=== PATIENT | male | born 1965 | race Caucasian/White ===

== ENCOUNTER 2017-01-30 22:07 | Inpatient (IN) | payer MEDICARE, MEDICAID ==
[~2017-01-30] VITALS: Ht 167.6 cm; Wt 69.1 kg
[~2017-01-30 22:07] MED LIST: AMLO2.5T PO; ATOR10TA84 PO; FURO10VI4 IM; LISI-661 PO; METF500T4 PO; OLAN2.5T3 PO; TAMS0.4C32 PO; WARF1 PO
[2017-01-30 23:59] LABS: BASOPHILS # (AUTO) 0.04 K/uL (0.00-0.20); BASOPHILS % (AUTO) 0.6 % (0.0-2.0); EOSINOPHILS # (AUTO) 0.18 K/uL (0.00-0.70); EOSINOPHILS % (AUTO) 2.39 % (1.0-6.0); HEMATOCRIT 25.5 % (41-53); HEMOGLOBIN 8.1 g/dL (13.5-17.5); LYMPHOCYTES # (AUTO) 0.6 K/uL (1.0-4.8); LYMPHOCYTES % (AUTO) 7.6 % (22.0-44.0); MEAN CORPUSCULAR HEMOGLOBIN 27.3 pg (26.0-34.0); MEAN CORPUSCULAR HGB CONC 31.6 G/dL (31.0-37.0); MEAN CORPUSCULAR VOLUME 87 fL (80-100); MONOCYTES # (AUTO) 0.6 K/uL (0.1-1.0); MONOCYTES % (AUTO) 8.3 % (2.0-9.0); NEUTROPHILS # (AUTO) 6.1 K/uL (1.8-7.7); NEUTROPHILS % (AUTO) 81.2 % (40.0-70.0); PLATELET COUNT (AUTO) 190 K/uL (150-450); RED BLOOD CELL COUNT(AUTO) 2.95 MIL/uL (4.50-5.90); RED CELL DISTRIBUTION WIDTH 15.4 % (11.5-14.5); WHITE BLOOD COUNT (AUTO) 7.5 K/uL (4.5-11.0)
[2017-01-31 00:06] LABS: ANION GAP 7 mmol/L (8-16); CALCIUM, TOTAL 8.5 mg/dL (8.8-10.5); CARBON DIOXIDE 33 mmol/L (22-29); CHLORIDE 101 mmol/L (98-107); CREATININE 2.93 mg/dL (0.60-1.30); GLOMERULAR FILTR. RATE CALC 23 mL/min (>60); POTASSIUM 3.6 mmol/L (3.5-5.1); SODIUM SERUM 141 mmol/L (136-145); UREA NITROGEN, BLOOD 29 mg/dL (7-18)
[2017-01-31 00:11] LABS: ALANINE AMINOTRANSFERASE 24 U/L (12-78); ALBUMIN 2.4 g/dL (3.4-5.0); ASPARTATE AMINOTRANSFERASE 25 U/L (15-37); BILIRUBIN,TOTAL 0.4 mg/dL (0.1-1.0); TOTAL PROTEIN, SERUM 7.3 g/dL (6.4-8.2)
[2017-01-31] MEDS ORDERED: HALOPERIDOL 5 MG TABLET PO PRN (01:45)
[2017-01-31] MEDS ORDERED: ZOLPIDEM TARTRATE 10 MG TABLET PO PRN (01:45)
[2017-01-31] MEDS ORDERED: LORazepam 2 MG TABLET PO PRN (01:45)
[2017-01-31 05:44] LABS: GLUCOSE,POINT OF CARE 122 MG/DL (70-110)
[2017-01-31 08:00] VITALS: BP 135/69
[2017-01-31] MEDS ORDERED: ACETAMINOPHEN 325 MG TABLET PO PRN (08:30)
[2017-01-31] MEDS ORDERED: BACITRACIN 28.4 GM OINTMENT TP PRN (08:30)
[2017-01-31] MEDS ORDERED: ONDANSETRON HCL 4 MG TABLET PO PRN (08:30)
[2017-01-31] MEDS ORDERED: MAG HYDROX/AL HYDROX/SIMETH ES 30 ML SUSPENSION UDCUP PO PRN (08:30)
[2017-01-31] MEDS ORDERED: CloNIDine HCL 0.1 MG TABLET PO PRN (08:30)
[2017-01-31] MEDS ORDERED: MAGNESIUM HYDROXIDE SUSPENSION 30 ML UDCUP PO PRN (08:30)
[2017-01-31] MEDS ORDERED: IBUPROFEN 600 MG TABLET PO PRN (08:30)
[2017-01-31] MEDS ORDERED: PETROLATUM,WHITE 71 GM JELLY TP PRN (08:30)
[2017-01-31] MEDS ORDERED: ALBUTEROL SULFATE HFA 90 MCG/PUFF 8 GM INHALER IH PRN (08:30)
[2017-01-31] MEDS ORDERED: LOPERAMIDE HCL 2 MG CAPSULE PO PRN (08:30)
[2017-01-31] MEDS ORDERED: BENZOCAINE/MENTHOL LOZENGE [8 LOZENGES/PACKET] MM PRN (08:30)
[2017-01-31] MEDS ORDERED: OLANZapine 5 MG TABLET PO SCH (09:00)
[2017-01-31] MEDS: TAMSULOSIN HCL 0.4 MG CAPSULE PO SCH (09:25)
[2017-01-31] MEDS: ATORVASTATIN CALCIUM 20 MG TABLET PO SCH (09:25)
[2017-01-31] MEDS: DOCUSATE SODIUM 100 MG CAPSULE PO SCH (09:25)
[2017-01-31] MEDS: AmLODIPine BESYLATE 2.5 MG TABLET PO SCH (09:26)
[2017-01-31] MEDS: OMEPRAZOLE 20 MG CAPSULE PO SCH (09:27)
[2017-01-31] MEDS: LISINOPRIL 10 MG TABLET PO SCH (09:27)
[2017-01-31] MEDS: VITAMIN B COMP/VIT C/FOLIC ACID CAPSULE PO SCH (09:27)
[2017-01-31] MEDS ORDERED: *CLINICAL-WARFARIN SODIUM DOSING CLINICAL ONE ×2 (11:00)
[2017-01-31] MEDS ORDERED: WARFARIN SODIUM-INR 2.0-3.0-RX DOSING PER PROTOCOL PO PRN (12:15)
[2017-01-31 12:31] LABS: INR 1.9 (0.9-1.1); PROTHROMBIN TIME 20.6 SEC (9.4-11.6)
[2017-01-31 12:47] VITALS: BP 125/78
[2017-01-31] MEDS: CALCIUM ACETATE 667 MG CAPSULE PO SCH ×2 (12:48→17:34)
[2017-01-31] MEDS: CARVEDILOL 6.25 MG TABLET PO SCH ×2 (12:49→17:33)
[2017-01-31] MEDS: MUPIROCIN CALCIUM 2% 22 GM OINTMENT TP SCH ×2 (12:52→17:34)
[2017-01-31 16:02] VITALS: BP 126/70
[2017-01-31] MEDS: WARFARIN SODIUM 2 MG TABLET PO SCH (17:34)
[2017-02-01 00:25] VITALS: BP 128/79
[2017-02-01] MEDS: CALCIUM ACETATE 667 MG CAPSULE PO SCH ×3 (07:00→17:38)
[2017-02-01] MEDS ORDERED: VANCOMYCIN HCL 750 MG in DEXTROSE 5%-WATER 150 ML IV SCH (08:00)
[2017-02-01 08:05] VITALS: BP 124/71
[2017-02-01] MEDS ORDERED: DEXTROSE 50%-WATER 25 GM/50 ML SYRINGE IVP PRN (08:15)
[2017-02-01] MEDS ORDERED: EPOETIN ALFA 10,000 UNITS/ML VIAL SQ SCH (09:00)
[2017-02-01 10:25] LABS: PROTHROMBIN TIME 20.7 SEC (9.4-11.6)
[2017-02-01 10:57] LABS: CHOL/HDL RATIO 3.1 (4.2-7.3); THYROID STIMULATING HORMONE 3.94 uIU/mL (0.36-3.74)
[2017-02-01] MEDS ORDERED: EPOETIN ALFA 10,000 UNITS/ML 2 ML VIAL SQ SCH (11:10)
[2017-02-01] MEDS ORDERED: EPOETIN ALFA 10,000 UNITS/ML VIAL SQ ONE (11:15)
[2017-02-01] MEDS: ATORVASTATIN CALCIUM 20 MG TABLET PO SCH (14:24)
[2017-02-01] MEDS: LISINOPRIL 10 MG TABLET PO SCH (14:24)
[2017-02-01] MEDS: DOCUSATE SODIUM 100 MG CAPSULE PO SCH (14:24)
[2017-02-01] MEDS: TAMSULOSIN HCL 0.4 MG CAPSULE PO SCH (14:24)
[2017-02-01] MEDS: VITAMIN B COMP/VIT C/FOLIC ACID CAPSULE PO SCH (14:24)
[2017-02-01] MEDS: CITALOPRAM HYDROBROMIDE 20 MG TABLET PO SCH (14:24)
[2017-02-01] MEDS: OMEPRAZOLE 20 MG CAPSULE PO SCH (14:24)
[2017-02-01] MEDS: CARVEDILOL 6.25 MG TABLET PO SCH ×2 (14:24→17:38)
[2017-02-01] MEDS: MUPIROCIN CALCIUM 2% 15 GM CREAM TP SCH ×3 (14:25→17:38)
[2017-02-01] MEDS: AmLODIPine BESYLATE 2.5 MG TABLET PO SCH (14:25)
[2017-02-01] MEDS: MUPIROCIN CALCIUM 2% 22 GM OINTMENT TP SCH ×3 (14:25→17:38)
[2017-02-01] MEDS: LevETIRAcetam 250 MG TABLET PO SCH ×2 (17:00→17:39)
[2017-02-01 17:37] LABS: GLUCOSE,POINT OF CARE 122 MG/DL (70-110)
[2017-02-01] MEDS: WARFARIN SODIUM 2 MG TABLET PO SCH (17:38)
[2017-02-01 17:43] VITALS: BP 122/68
[2017-02-01] MEDS ORDERED: LevETIRAcetam 250 MG TABLET PO ONE (18:30)
[2017-02-01 21:52] LABS: GLUCOSE COMMENT 1 Received Meds; GLUCOSE,POINT OF CARE 116 MG/DL (70-110)
[2017-02-02] MEDS: CALCIUM ACETATE 667 MG CAPSULE PO SCH ×3 (06:49→19:20)
[2017-02-02 06:57] LABS: GLUCOSE,POINT OF CARE 83 MG/DL (70-110)
[2017-02-02 07:45] LABS: INR 2.1 (0.9-1.1); PROTHROMBIN TIME 21.8 SEC (9.4-11.6)
[2017-02-02] MEDS: MUPIROCIN CALCIUM 2% 22 GM OINTMENT TP SCH ×3 (09:00→16:49)
[2017-02-02] MEDS: LevETIRAcetam 250 MG TABLET PO SCH ×2 (09:28→16:48)
[2017-02-02] MEDS: CARVEDILOL 6.25 MG TABLET PO SCH ×2 (09:28→19:20)
[2017-02-02] MEDS: CITALOPRAM HYDROBROMIDE 20 MG TABLET PO SCH (09:28)
[2017-02-02] MEDS: DOCUSATE SODIUM 100 MG CAPSULE PO SCH (09:28)
[2017-02-02] MEDS: TAMSULOSIN HCL 0.4 MG CAPSULE PO SCH (09:28)
[2017-02-02] MEDS: AmLODIPine BESYLATE 2.5 MG TABLET PO SCH (09:29)
[2017-02-02] MEDS: OMEPRAZOLE 20 MG CAPSULE PO SCH (09:29)
[2017-02-02] MEDS: ATORVASTATIN CALCIUM 20 MG TABLET PO SCH (09:29)
[2017-02-02] MEDS: LISINOPRIL 10 MG TABLET PO SCH (09:29)
[2017-02-02] MEDS: VITAMIN B COMP/VIT C/FOLIC ACID CAPSULE PO SCH (09:29)
[2017-02-02 09:39] VITALS: BP 125/64
[2017-02-02] MEDS: MUPIROCIN CALCIUM 2% 15 GM CREAM TP SCH ×2 (10:57→16:49)
[2017-02-02 11:47] LABS: GLUCOSE,POINT OF CARE 91 MG/DL (70-110)
[2017-02-02 16:41] VITALS: BP 126/70
[2017-02-02 16:46] LABS: GLUCOSE,POINT OF CARE 93 MG/DL (70-110)
[2017-02-02] MEDS: WARFARIN SODIUM 2 MG TABLET PO SCH (16:48)
[2017-02-02 20:32] LABS: GLUCOSE,POINT OF CARE 96 MG/DL (70-110)
[2017-02-03 05:42] LABS: GLUCOSE,POINT OF CARE 91 MG/DL (70-110)
[2017-02-03] MEDS: INSULIN ASPART 100 UNITS/ML SQ PRN (06:50)
[2017-02-03] MEDS: CALCIUM ACETATE 667 MG CAPSULE PO SCH ×3 (06:59→17:25)
[2017-02-03 07:49] LABS: INR 1.9 (0.9-1.1); PROTHROMBIN TIME 20.1 SEC (9.4-11.6)
[2017-02-03] MEDS ORDERED: -POST HEMODIALYSIS NOTE- MISC SCH (09:00)
[2017-02-03] MEDS: MUPIROCIN CALCIUM 2% 22 GM OINTMENT TP SCH ×2 (09:00→16:40)
[2017-02-03] MEDS: MUPIROCIN CALCIUM 2% 15 GM CREAM TP SCH ×2 (09:00→16:40)
[2017-02-03] MEDS: CITALOPRAM HYDROBROMIDE 20 MG TABLET PO SCH (09:34)
[2017-02-03] MEDS: DOCUSATE SODIUM 100 MG CAPSULE PO SCH (09:34)
[2017-02-03] MEDS: CARVEDILOL 6.25 MG TABLET PO SCH ×2 (09:34→16:40)
[2017-02-03] MEDS: ATORVASTATIN CALCIUM 20 MG TABLET PO SCH (09:35)
[2017-02-03] MEDS: AmLODIPine BESYLATE 2.5 MG TABLET PO SCH (09:35)
[2017-02-03] MEDS: LevETIRAcetam 250 MG TABLET PO SCH ×2 (09:35→16:40)
[2017-02-03] MEDS: OMEPRAZOLE 20 MG CAPSULE PO SCH (09:35)
[2017-02-03] MEDS: VITAMIN B COMP/VIT C/FOLIC ACID CAPSULE PO SCH (09:35)
[2017-02-03] MEDS: TAMSULOSIN HCL 0.4 MG CAPSULE PO SCH (09:35)
[2017-02-03] MEDS: LISINOPRIL 10 MG TABLET PO SCH (09:36)
[2017-02-03 10:40] VITALS: BP 124/75
[2017-02-03 11:27] LABS: GLUCOSE,POINT OF CARE 85 MG/DL (70-110)
[2017-02-03 16:17] VITALS: BP 125/74
[2017-02-03] MEDS: WARFARIN SODIUM 2 MG TABLET PO SCH (16:40)
[2017-02-03 16:42] LABS: GLUCOSE COMMENT 1 Received Meds; GLUCOSE,POINT OF CARE 78 MG/DL (70-110)
[2017-02-04 05:32] LABS: GLUCOSE,POINT OF CARE 74 MG/DL (70-110)
[2017-02-04] MEDS: CALCIUM ACETATE 667 MG CAPSULE PO SCH ×3 (06:39→16:58)
[2017-02-04 07:01] VITALS: BP 120/71
[2017-02-04 07:01] LABS: PROTHROMBIN TIME 20.7 SEC (9.4-11.6)
[2017-02-04] MEDS: MUPIROCIN CALCIUM 2% 15 GM CREAM TP SCH ×2 (09:00→16:59)
[2017-02-04] MEDS: LevETIRAcetam 250 MG TABLET PO SCH ×2 (09:00→16:58)
[2017-02-04] MEDS: CARVEDILOL 6.25 MG TABLET PO SCH ×2 (09:00→16:58)
[2017-02-04] MEDS: MUPIROCIN CALCIUM 2% 22 GM OINTMENT TP SCH ×2 (09:00→16:59)
[2017-02-04 11:29] VITALS: BP 131/67
[2017-02-04] MEDS ORDERED: MANNITOL 25%-12.5 GM/50 ML VIAL IVP PRN (12:00)
[2017-02-04] MEDS ORDERED: ALBUMIN HUMAN 25%-12.5GM/50ML IV BOTTLE IV PRN (12:00)
[2017-02-04] MEDS: DOCUSATE SODIUM 100 MG CAPSULE PO SCH (13:25)
[2017-02-04] MEDS: TAMSULOSIN HCL 0.4 MG CAPSULE PO SCH (13:25)
[2017-02-04] MEDS: CITALOPRAM HYDROBROMIDE 20 MG TABLET PO SCH (13:25)
[2017-02-04] MEDS: VITAMIN B COMP/VIT C/FOLIC ACID CAPSULE PO SCH (13:26)
[2017-02-04] MEDS: LISINOPRIL 10 MG TABLET PO SCH (13:26)
[2017-02-04] MEDS: ATORVASTATIN CALCIUM 20 MG TABLET PO SCH (13:26)
[2017-02-04] MEDS: AmLODIPine BESYLATE 2.5 MG TABLET PO SCH (13:34)
[2017-02-04] MEDS: OMEPRAZOLE 20 MG CAPSULE PO SCH (13:34)
[2017-02-04] MEDS: EPOETIN ALFA 10,000 UNITS/ML 2 ML VIAL SQ SCH (13:42)
[2017-02-04 13:45] VITALS: BP 131/76
[2017-02-04] MEDS: WARFARIN SODIUM 2 MG TABLET PO SCH (16:58)
[2017-02-04 17:32] LABS: GLUCOSE COMMENT 1 FASTING; GLUCOSE,POINT OF CARE 75 MG/DL (70-110)
[2017-02-04 20:28] VITALS: BP 120/72
[2017-02-05 06:36] LABS: GLUCOSE,POINT OF CARE 77 MG/DL (70-110)
[2017-02-05] MEDS: CALCIUM ACETATE 667 MG CAPSULE PO SCH ×3 (07:03→17:41)
[2017-02-05] MEDS: INSULIN ASPART 100 UNITS/ML SQ PRN ×2 (07:05→07:06)
[2017-02-05 07:34] LABS: CALCIUM, TOTAL 8.6 mg/dL (8.8-10.5); CREATININE 4.97 mg/dL (0.60-1.30); PHOSPHORUS 5.2 mg/dL (2.5-4.9); POTASSIUM 4.8 mmol/L (3.5-5.1)
[2017-02-05] MEDS: LevETIRAcetam 250 MG TABLET PO SCH ×2 (10:32→17:41)
[2017-02-05] MEDS: CITALOPRAM HYDROBROMIDE 20 MG TABLET PO SCH (10:32)
[2017-02-05] MEDS: DOCUSATE SODIUM 100 MG CAPSULE PO SCH (10:32)
[2017-02-05] MEDS: ATORVASTATIN CALCIUM 20 MG TABLET PO SCH (10:32)
[2017-02-05] MEDS: CARVEDILOL 6.25 MG TABLET PO SCH ×2 (10:32→17:41)
[2017-02-05] MEDS: OMEPRAZOLE 20 MG CAPSULE PO SCH (10:32)
[2017-02-05] MEDS: AmLODIPine BESYLATE 2.5 MG TABLET PO SCH (10:32)
[2017-02-05] MEDS: LISINOPRIL 10 MG TABLET PO SCH (10:33)
[2017-02-05] MEDS: VITAMIN B COMP/VIT C/FOLIC ACID CAPSULE PO SCH (10:33)
[2017-02-05] MEDS: TAMSULOSIN HCL 0.4 MG CAPSULE PO SCH (10:33)
[2017-02-05] MEDS: MUPIROCIN CALCIUM 2% 15 GM CREAM TP SCH ×2 (10:37→17:00)
[2017-02-05] MEDS: MUPIROCIN CALCIUM 2% 22 GM OINTMENT TP SCH ×2 (10:37→17:00)
[2017-02-05 13:20] VITALS: BP 122/68
[2017-02-05 16:00] VITALS: BP 126/57
[2017-02-05] MEDS: WARFARIN SODIUM 2 MG TABLET PO SCH (17:41)
[2017-02-05 17:52] LABS: GLUCOSE COMMENT 1 FASTING; GLUCOSE,POINT OF CARE 87 MG/DL (70-110)
[2017-02-06 05:37] LABS: GLUCOSE,POINT OF CARE 72 MG/DL (70-110)
[2017-02-06] MEDS: CALCIUM ACETATE 667 MG CAPSULE PO SCH (06:33)
[2017-02-06 06:43] VITALS: BP 116/73
[2017-02-06 06:55] LABS: BASOPHILS # (AUTO) 0.03 K/uL (0.00-0.20); BASOPHILS % (AUTO) 0.6 % (0.0-2.0); EOSINOPHILS # (AUTO) 0.11 K/uL (0.00-0.70); EOSINOPHILS % (AUTO) 2.05 % (1.0-6.0); HEMATOCRIT 24.7 % (41-53); HEMOGLOBIN 7.8 g/dL (13.5-17.5); LYMPHOCYTES # (AUTO) 0.8 K/uL (1.0-4.8); LYMPHOCYTES % (AUTO) 15.2 % (22.0-44.0); MEAN CORPUSCULAR HEMOGLOBIN 27.4 pg (26.0-34.0); MEAN CORPUSCULAR HGB CONC 31.7 G/dL (31.0-37.0); MEAN CORPUSCULAR VOLUME 87 fL (80-100); MONOCYTES # (AUTO) 0.4 K/uL (0.1-1.0); MONOCYTES % (AUTO) 7.1 % (2.0-9.0); RED BLOOD CELL COUNT(AUTO) 2.86 MIL/uL (4.50-5.90); WHITE BLOOD COUNT (AUTO) 5.4 K/uL (4.5-11.0)
[2017-02-06 07:00] LABS: INR 2.2 (0.9-1.1)
[2017-02-06 07:31] LABS: CALCIUM, TOTAL 9.1 mg/dL (8.8-10.5); CREATININE 6.4 mg/dL (0.60-1.30); PHOSPHORUS 6.2 mg/dL (2.5-4.9); POTASSIUM 5.9 mmol/L (3.5-5.1)
[2017-02-06 08:03] LABS: PLATELET COUNT (AUTO) 90 K/uL (150-450)
[2017-02-06] MEDS: MUPIROCIN CALCIUM 2% 15 GM CREAM TP SCH (08:37)
[2017-02-06] MEDS: MUPIROCIN CALCIUM 2% 22 GM OINTMENT TP SCH (08:46)
[2017-02-06 09:58] VITALS: BP 121/79
[2017-02-06] MEDS ORDERED: ALBUMIN HUMAN 25%-12.5GM/50ML IV BOTTLE IV PRN (10:30)
[2017-02-06] MEDS ORDERED: MANNITOL 25%-12.5 GM/50 ML VIAL IVP PRN (10:30)
[2017-02-06] MEDS ORDERED: IRON SUCROSE COMPLEX 200 MG in SODIUM CHLORIDE 0.9% 100 ML IV PRN (10:30)
[2017-02-06] MEDS ORDERED: CITA20TA9 PO (13:43)
[2017-02-06] MEDS ORDERED: PHOSLOC PO (13:44)
[2017-02-06] MEDS ORDERED: CARV6 PO (13:44)
[2017-02-06] MEDS ORDERED: DSS100 PO (13:45)
[2017-02-06] MEDS ORDERED: MUPI1OIN4 NS (13:45)
[2017-02-06] MEDS ORDERED: LEVE250T55 PO (13:45)
[2017-02-06] MEDS ORDERED: MUPI15CR TP (13:46)
[2017-02-06] MEDS ORDERED: OMEP20 PO (13:46)
[2017-02-06] MEDS ORDERED: FOLI1CAP2 PO (13:46)
[2017-02-06] MEDS ORDERED: WARF2 PO (13:47)
[2017-02-06] MEDS: EPOETIN ALFA 10,000 UNITS/ML 2 ML VIAL SQ SCH (14:08)
== END 2017-02-06 14:25 | disposition home or self-care (01) | DRG 885 ==
LOC: EMS 22:10 → 3EI 01-31 02:23
PROVIDERS: ADMIT Psychiatry & Neurology Psychiatry; ATTEND Psychiatry & Neurology Psychiatry
PROC: 5A1D60Z (ICD-10-PCS; principal; 2017-02-01)
DX: F25.9 Schizoaffective disorder, unspecified (principal); N18.6 End stage renal disease; F33.2 Major depressive disorder, recurrent severe without psychotic features; R45.851 Suicidal ideations; I13.2 Hypertensive heart and chronic kidney disease with heart failure and with stage 5 chronic kidney disease, or end stage renal disease; D68.61 Antiphospholipid syndrome; I87.1 Compression of vein; T82.838A Hemorrhage due to vascular prosthetic devices, implants and grafts, initial encounter; I25.10 Atherosclerotic heart disease of native coronary artery without angina pectoris; I50.9 Heart failure, unspecified; N40.0 Benign prostatic hyperplasia without lower urinary tract symptoms; E11.22 Type 2 diabetes mellitus with diabetic chronic kidney disease; D69.6 Thrombocytopenia, unspecified; D63.1 Anemia in chronic kidney disease; E78.5 Hyperlipidemia, unspecified; X58.XXXA Exposure to other specified factors, initial encounter; Y84.1 Kidney dialysis as the cause of abnormal reaction of the patient, or of later complication, without mention of misadventure at the time of the procedure; L29.9 Pruritus, unspecified; K21.9 Gastro-esophageal reflux disease without esophagitis; E11.65 Type 2 diabetes mellitus with hyperglycemia; R56.9 Unspecified convulsions; R60.0 Localized edema; Z79.899 Other long term (current) drug therapy; Z22.322 Carrier or suspected carrier of Methicillin resistant Staphylococcus aureus; Z79.01 Long term (current) use of anticoagulants; Z99.2 Dependence on renal dialysis; Y92.89 Other specified places as the place of occurrence of the external cause; Y93.9 Activity, unspecified; Y99.8 Other external cause status
CPT/HCPCS: 82306; 82962; 83036; 83540; 83550; 84100; 84443; 87081; 87340; 90935; 99285; G0480; G0482; J0885; J1756; J3370; J7050; J7060

== ENCOUNTER 2017-05-28 00:18 | Emergency (ER) | payer MEDICARE, OTHER ==
[~2017-05-28] VITALS: Ht 160 cm; Wt 72.7 kg
[~2017-05-28 00:18] MED LIST changes: +CARV6 PO; +CITA20TA9 PO; +DSS100 PO; +FOLI1CAP2 PO; -FURO10VI4 IM; +LEVE250T55 PO; -METF500T4 PO; +MUPI15CR TP; +MUPI1OIN4 NS; -OLAN2.5T3 PO; +OMEP20 PO; +PHOSLOC PO; -WARF1 PO; +WARF2 PO
[2017-05-28 00:52] LABS: GLUCOSE,POINT OF CARE 113 MG/DL (70-110)
[2017-05-28 01:55] LABS: BASOPHILS % (AUTO) 0.4 % (0.0-2.0); EOSINOPHILS % (AUTO) 0.6 % (1.0-6.0); HEMATOCRIT 28.8 % (41-53); HEMOGLOBIN 9.7 g/dL (13.5-17.5); LYMPHOCYTES # (AUTO) 0.4 K/uL (1.0-4.8); LYMPHOCYTES % (AUTO) 6.3 % (22.0-44.0); MEAN CORPUSCULAR HEMOGLOBIN 30.1 pg (26.0-34.0); MEAN CORPUSCULAR HGB CONC 33.7 G/dL (31.0-37.0); MEAN CORPUSCULAR VOLUME 89 fL (80-100); MONOCYTES # (AUTO) 0.4 K/uL (0.1-1.0); MONOCYTES % (AUTO) 6.5 % (2.0-9.0); NEUTROPHILS # (AUTO) 5.8 K/uL (1.8-7.7); RED BLOOD CELL COUNT(AUTO) 3.22 MIL/uL (4.50-5.90); RED CELL DISTRIBUTION WIDTH 20.2 % (11.5-14.5); WHITE BLOOD COUNT (AUTO) 6.8 K/uL (4.5-11.0)
[2017-05-28 02:08] LABS: INR 2.1 (0.9-1.1); PROTHROMBIN TIME 22.4 SEC (9.4-11.6)
[2017-05-28 02:09] LABS: CALCIUM, TOTAL 8.3 mg/dL (8.8-10.5); CREATININE 5.73 mg/dL (0.60-1.30); POTASSIUM 3.3 mmol/L (3.5-5.1)
[2017-05-28 02:34] LABS: NEUTROPHILS % (AUTO) 86.2 % (40.0-70.0)
[2017-05-28 02:37] LABS: PLATELET COUNT (AUTO) 47 K/uL (150-450); RBC MORPHOLOGY COMMENT ABNORMAL RBC MORPH
[2017-05-28] MEDS ORDERED: BACITRACIN 0.9 GM PACKET OINTMENT TP ONE ×2 (02:45→03:00)
[2017-05-28 03:49] VITALS: BP 129/65
== END 2017-05-28 03:59 | disposition home or self-care (01) ==
LOC: EMS 00:20
DX: T82.838A Hemorrhage due to vascular prosthetic devices, implants and grafts, initial encounter (principal); I11.0 Hypertensive heart disease with heart failure; I50.9 Heart failure, unspecified; I25.10 Atherosclerotic heart disease of native coronary artery without angina pectoris; E78.00 Pure hypercholesterolemia, unspecified
CPT/HCPCS: 82962; 99284

== ENCOUNTER 2017-06-16 19:43 | Inpatient (IN) | payer MEDICARE, OTHER ==
[~2017-06-16] VITALS: Ht 165.1 cm; Wt 66.0 kg
[~2017-06-16 19:43] MED LIST changes: -CARV6 PO; -MUPI15CR TP; -MUPI1OIN4 NS
[2017-06-16] MEDS ORDERED: LEVO125 PO (19:54)
[2017-06-16] MEDS ORDERED: FURO40 PO (19:54)
[2017-06-16] MEDS ORDERED: SUCR1TAB PO (19:54)
[2017-06-16] MEDS ORDERED: ATOR20TA86 PO (20:00)
[2017-06-16] MEDS ORDERED: ACETAMINOPHEN 1000 MG/ISO-OSM 100 ML IV ONE (20:00)
[2017-06-16 20:07] LABS: GLUCOSE,POINT OF CARE 109 MG/DL (70-110)
[2017-06-16 20:13] LABS: EOSINOPHILS % (AUTO) 0 % (1.0-6.0); HEMOGLOBIN 10.5 g/dL (13.5-17.5); LYMPHOCYTES # (AUTO) 0.2 K/uL (1.0-4.8); LYMPHOCYTES % (AUTO) 2.2 % (22.0-44.0); MEAN CORPUSCULAR HEMOGLOBIN 30.2 pg (26.0-34.0); MEAN CORPUSCULAR HGB CONC 33.9 G/dL (31.0-37.0); MEAN CORPUSCULAR VOLUME 89 fL (80-100); MONOCYTES # (AUTO) 0.3 K/uL (0.1-1.0); MONOCYTES % (AUTO) 3.2 % (2.0-9.0); NEUTROPHILS # (AUTO) 9.8 K/uL (1.8-7.7); RED BLOOD CELL COUNT(AUTO) 3.48 MIL/uL (4.50-5.90); RED CELL DISTRIBUTION WIDTH 18.2 % (11.5-14.5); WHITE BLOOD COUNT (AUTO) 10.3 K/uL (4.5-11.0)
[2017-06-16 20:15] LABS: NEUTROPHILS % (AUTO) 94.6 % (40.0-70.0)
[2017-06-16 20:20] LABS: CALCIUM, TOTAL 8.7 mg/dL (8.8-10.5); CREATININE 7.91 mg/dL (0.60-1.30); POTASSIUM 4.4 mmol/L (3.5-5.1)
[2017-06-16 20:24] LABS: INR 2.4 (0.9-1.1); PROTHROMBIN TIME 25.4 SEC (9.4-11.6)
[2017-06-16 20:25] LABS: ALBUMIN 3.3 g/dL (3.4-5.0); BILIRUBIN,TOTAL 1.9 mg/dL (0.1-1.0); TOTAL PROTEIN, SERUM 7.6 g/dL (6.4-8.2)
[2017-06-16 20:31] LABS: LACTIC ACID 1.3 mmol/L (0.4-2.0)
[2017-06-16 20:49] LABS: PLATELET COUNT (AUTO) 42 K/uL (150-450); RBC MORPHOLOGY COMMENT ABNORMAL RBC MORPH
[2017-06-16 21:02] LABS: INFLUENZA TYPE B NEGATIVE FOR TYPE B (NEGATIVE)
[2017-06-16] MEDS ORDERED: CefTRIAXone 1 GM/DEXTROSE 50 ML IV ONE (22:00)
[2017-06-16] MEDS ORDERED: DOXYCYCLINE 100 MG CAPSULE PO ONE (22:00)
[2017-06-16 22:05] LABS: PROCALCITONIN (PCT) 0.46 ng/mL (<0.50)
[2017-06-16] MEDS ORDERED: ACETAMINOPHEN 325 MG TABLET PO PRN (22:15)
[2017-06-16] MEDS ORDERED: 0.9% SODIUM CHLORIDE 10 ML SYRINGE IVP PRN (22:15)
[2017-06-16] MEDS ORDERED: ONDANSETRON HCL 4 MG/2 ML VIAL IVP PRN (22:15)
[2017-06-16 22:46] VITALS: BP 112/67
[2017-06-17 00:08] VITALS: BP 109/60
[2017-06-17] MEDS ORDERED: ACETAMINOPHEN 325 MG TABLET PO PRN (00:45)
[2017-06-17] MEDS ORDERED: MAGNESIUM HYDROXIDE SUSPENSION 30 ML UDCUP PO PRN (00:45)
[2017-06-17] MEDS ORDERED: ALBUTEROL SULFATE 2.5 MG/0.5 ML NEB SOLUTION NEB PRN (00:45)
[2017-06-17] MEDS ORDERED: VANCOMYCIN HCL 1 GM/D5% WATER 200 ML IV PRN (00:45)
[2017-06-17] MEDS ORDERED: *CLINICAL-CEFEPIME DOSING CLINICAL ONE ×2 (00:45)
[2017-06-17] MEDS ORDERED: *CLINICAL-WARFARIN SODIUM DOSING CLINICAL ONE ×4 (00:45→14:00)
[2017-06-17] MEDS ORDERED: ONDANSETRON HCL 4 MG/2 ML VIAL IVP PRN (00:45)
[2017-06-17] MEDS ORDERED: 0.9% SODIUM CHLORIDE 10 ML SYRINGE IVP PRN (00:45)
[2017-06-17] MEDS ORDERED: BISACODYL 10 MG RECTAL RECTAL SUPPOSITORY PR PRN (00:45)
[2017-06-17] MEDS ORDERED: IPRATROPIUM BROMIDE 0.5 MG/2.5 ML NEB SOLUTION NEB PRN (00:45)
[2017-06-17] MEDS ORDERED: VANCOMYCIN HCL 1.5 GM in DEXTROSE 5%-WATER 250 ML IV ONE (01:00)
[2017-06-17] MEDS ORDERED: WARFARIN SODIUM-INR 2.0-3.0-RX DOSING PER PROTOCOL PO PRN (01:30)
[2017-06-17] MEDS ORDERED: SODIUM CHLORIDE 0.9% 250 ML IV ONE (01:41)
[2017-06-17 04:46] VITALS: BP 130/57
[2017-06-17] MEDS: LEVOTHYROXINE SODIUM 125 MCG TABLET PO SCH (06:35)
[2017-06-17 07:13] LABS: BASOPHILS # (AUTO) 0.02 K/uL (0.00-0.20); BASOPHILS % (AUTO) 0.2 % (0.0-2.0); EOSINOPHILS % (AUTO) 0.01 % (1.0-6.0); HEMOGLOBIN 9.5 g/dL (13.5-17.5); LYMPHOCYTES # (AUTO) 0.4 K/uL (1.0-4.8); LYMPHOCYTES % (AUTO) 4.8 % (22.0-44.0); MEAN CORPUSCULAR HEMOGLOBIN 31.3 pg (26.0-34.0); MEAN CORPUSCULAR HGB CONC 34.1 G/dL (31.0-37.0); MEAN CORPUSCULAR VOLUME 92 fL (80-100); MONOCYTES # (AUTO) 0.4 K/uL (0.1-1.0); NEUTROPHILS # (AUTO) 6.7 K/uL (1.8-7.7); PLATELET COUNT (AUTO) 40 K/uL (150-450); RED BLOOD CELL COUNT(AUTO) 3.05 MIL/uL (4.50-5.90); WHITE BLOOD COUNT (AUTO) 7.4 K/uL (4.5-11.0)
[2017-06-17 07:17] LABS: RBC MORPHOLOGY COMMENT ABNORMAL RBC MORPH
[2017-06-17 07:30] LABS: ALBUMIN 2.7 g/dL (3.4-5.0); BILIRUBIN,TOTAL 1.1 mg/dL (0.1-1.0); CALCIUM, TOTAL 8.6 mg/dL (8.8-10.5); CREATININE 8.41 mg/dL (0.60-1.30); MAGNESIUM 1.7 mg/dL (1.80-2.40); PHOSPHORUS 7.3 mg/dL (2.5-4.9); POTASSIUM 4.1 mmol/L (3.5-5.1); TOTAL PROTEIN, SERUM 6.6 g/dL (6.4-8.2)
[2017-06-17 07:34] VITALS: BP 98/58
[2017-06-17 07:37] LABS: PROTHROMBIN TIME 20.9 SEC (9.4-11.6)
[2017-06-17] MEDS: ATORVASTATIN CALCIUM 20 MG TABLET PO SCH (07:53)
[2017-06-17] MEDS: OMEPRAZOLE 20 MG CAPSULE PO SCH (07:53)
[2017-06-17] MEDS: LACTOBAC ACID/BULG/BIFID/THERM TABLET PO SCH ×2 (07:53→21:26)
[2017-06-17] MEDS: DOCUSATE SODIUM 100 MG CAPSULE PO SCH ×2 (07:53→21:00)
[2017-06-17] MEDS: TAMSULOSIN HCL 0.4 MG CAPSULE PO SCH (07:53)
[2017-06-17 08:21] LABS: HEMOGLOBIN A1C 4.9 % (4.5-6.2)
[2017-06-17] MEDS ORDERED: SUCRALFATE 1 GM TABLET PO SCH (09:00)
[2017-06-17 11:42] VITALS: BP 99/61
[2017-06-17 14:37] LABS: APPEARANCE,URINE CLEAR (CLEAR); GLUCOSE, URINE (UA) NEGATIVE (NEGATIVE); KETONES,URINE NEGATIVE (NEGATIVE); LEUKOCYTE ESTERASE ,URINE NEGATIVE (NEGATIVE); OCCULT BLOOD,URINE MODERATE (NEGATIVE); PH,URINE 7.5 (5.0-8.0); PROTEIN,URINE SEE CONFIRM (NEGATIVE)
[2017-06-17 14:48] LABS: ADD UA MICROSCOPIC YES
[2017-06-17 14:49] LABS: SQUAMOUS EPITHELIAL CELL,UR Few /LPF (None Seen); SULFOSALICYLIC ACID,URINE 3+ (Negative); WBC,URINE 0-2 /HPF (0-5)
[2017-06-17] MEDS ORDERED: CEFEPIME HCL 1 GM in DEXTROSE 5%-WATER 50 ML IV ONE (15:00)
[2017-06-17] MEDS: WARFARIN SODIUM 2 MG TABLET PO SCH (18:15)
[2017-06-17 19:27] VITALS: BP 132/70
[2017-06-17 23:24] VITALS: BP 135/67
[2017-06-18 04:25] VITALS: BP 137/62
[2017-06-18] MEDS: LEVOTHYROXINE SODIUM 125 MCG TABLET PO SCH (06:17)
[2017-06-18 06:56] LABS: BASOPHILS % (AUTO) 0.4 % (0.0-2.0); EOSINOPHILS % (AUTO) 0.5 % (1.0-6.0); HEMATOCRIT 29.6 % (41-53); HEMOGLOBIN 10.1 g/dL (13.5-17.5); LYMPHOCYTES # (AUTO) 0.5 K/uL (1.0-4.8); LYMPHOCYTES % (AUTO) 11.1 % (22.0-44.0); MEAN CORPUSCULAR HEMOGLOBIN 31.6 pg (26.0-34.0); MEAN CORPUSCULAR HGB CONC 34.2 G/dL (31.0-37.0); MEAN CORPUSCULAR VOLUME 93 fL (80-100); MONOCYTES # (AUTO) 0.4 K/uL (0.1-1.0); MONOCYTES % (AUTO) 9.5 % (2.0-9.0); NEUTROPHILS # (AUTO) 3.7 K/uL (1.8-7.7); NEUTROPHILS % (AUTO) 78.5 % (40.0-70.0); PLATELET COUNT (AUTO) 55 K/uL (150-450); RED CELL DISTRIBUTION WIDTH 18.8 % (11.5-14.5); WHITE BLOOD COUNT (AUTO) 4.7 K/uL (4.5-11.0)
[2017-06-18 07:21] LABS: INR 1.9 (0.9-1.1); PROTHROMBIN TIME 20.4 SEC (9.4-11.6)
[2017-06-18 07:24] LABS: CALCIUM, TOTAL 8.4 mg/dL (8.8-10.5); CREATININE 6.23 mg/dL (0.60-1.30); MAGNESIUM 1.8 mg/dL (1.80-2.40); PHOSPHORUS 4.7 mg/dL (2.5-4.9); POTASSIUM 3.9 mmol/L (3.5-5.1)
[2017-06-18 07:26] VITALS: BP 143/79
[2017-06-18 07:41] LABS: RBC MORPHOLOGY COMMENT ABNORMAL RBC MORPH
[2017-06-18] MEDS: DOCUSATE SODIUM 100 MG CAPSULE PO SCH ×2 (08:43→20:43)
[2017-06-18] MEDS: TAMSULOSIN HCL 0.4 MG CAPSULE PO SCH (08:43)
[2017-06-18] MEDS: ATORVASTATIN CALCIUM 20 MG TABLET PO SCH (08:43)
[2017-06-18] MEDS: OMEPRAZOLE 20 MG CAPSULE PO SCH (08:43)
[2017-06-18] MEDS: SOD FERRIC GLUC COMPLX/SUCROSE 125 MG in SODIUM CHLORIDE 0.9% 100 ML IV SCH (08:43)
[2017-06-18] MEDS: LACTOBAC ACID/BULG/BIFID/THERM TABLET PO SCH ×2 (08:46→20:43)
[2017-06-18] MEDS ORDERED: EPOETIN ALFA 10,000 UNITS/ML VIAL SQ SCH (09:00)
[2017-06-18 11:38] VITALS: BP 146/74
[2017-06-18 16:10] VITALS: BP 144/63
[2017-06-18] MEDS: CEFEPIME HCL 0.5 GM in DEXTROSE 5%-WATER 50 ML IV SCH (16:23)
[2017-06-18] MEDS: WARFARIN SODIUM 2 MG TABLET PO SCH (16:23)
[2017-06-18 19:24] VITALS: BP 135/67
[2017-06-19 00:10] VITALS: BP 154/68
[2017-06-19 04:01] VITALS: BP 137/68
[2017-06-19] MEDS: LEVOTHYROXINE SODIUM 125 MCG TABLET PO SCH (06:15)
[2017-06-19 07:42] LABS: GLUCOSE,POINT OF CARE 86 MG/DL (70-110)
[2017-06-19 07:52] VITALS: BP 140/71
[2017-06-19] MEDS: SOD FERRIC GLUC COMPLX/SUCROSE 125 MG in SODIUM CHLORIDE 0.9% 100 ML IV SCH (08:11)
[2017-06-19] MEDS ORDERED: SODIUM CHLORIDE 0.9% 2,000 ML IV ONE (08:15)
[2017-06-19] MEDS: DOCUSATE SODIUM 100 MG CAPSULE PO SCH (09:00)
[2017-06-19] MEDS: LACTOBAC ACID/BULG/BIFID/THERM TABLET PO SCH (09:00)
[2017-06-19 09:10] LABS: INR 1.7 (0.9-1.1); PROTHROMBIN TIME 17.6 SEC (9.4-11.6)
[2017-06-19] MEDS: TAMSULOSIN HCL 0.4 MG CAPSULE PO SCH (09:46)
[2017-06-19] MEDS: ATORVASTATIN CALCIUM 20 MG TABLET PO SCH (09:46)
[2017-06-19] MEDS: OMEPRAZOLE 20 MG CAPSULE PO SCH (09:46)
[2017-06-19 10:03] LABS: GLUCOSE,POINT OF CARE 124 MG/DL (70-110)
[2017-06-19 11:21] VITALS: BP 116/74
[2017-06-19] MEDS: CEFEPIME HCL 0.5 GM in DEXTROSE 5%-WATER 50 ML IV SCH (15:00)
[2017-06-19] MEDS ORDERED: WARFARIN SODIUM 5 MG TABLET PO ONE (17:00)
[2017-06-19 22:07] LABS: MYCOPLASMA AB IGG 669 U/mL (0-99)
[2017-06-20 12:16] LABS: ORGANISM ID Not indicated.
== END 2017-06-19 15:30 | disposition left against medical advice (07) | DRG 871 ==
LOC: EMS 19:44 → 5S 21:59
PROVIDERS: ADMIT Internal Medicine; ATTEND Internal Medicine
PROC: 5A1D60Z (ICD-10-PCS; principal; 2017-06-19)
DX: A41.9 Sepsis, unspecified organism (principal); J18.9 Pneumonia, unspecified organism; I13.2 Hypertensive heart and chronic kidney disease with heart failure and with stage 5 chronic kidney disease, or end stage renal disease; N18.6 End stage renal disease; D68.61 Antiphospholipid syndrome; E11.22 Type 2 diabetes mellitus with diabetic chronic kidney disease; I50.9 Heart failure, unspecified; F20.9 Schizophrenia, unspecified; N40.0 Benign prostatic hyperplasia without lower urinary tract symptoms; K21.9 Gastro-esophageal reflux disease without esophagitis; E03.9 Hypothyroidism, unspecified; I25.10 Atherosclerotic heart disease of native coronary artery without angina pectoris; J44.9 Chronic obstructive pulmonary disease, unspecified; G40.909 Epilepsy, unspecified, not intractable, without status epilepticus; F32.9 Major depressive disorder, single episode, unspecified; I77.0 Arteriovenous fistula, acquired; D64.9 Anemia, unspecified; E78.00 Pure hypercholesterolemia, unspecified; F17.200 Nicotine dependence, unspecified, uncomplicated; Z82.49 Family history of ischemic heart disease and other diseases of the circulatory system; Z83.3 Family history of diabetes mellitus; Z79.01 Long term (current) use of anticoagulants
CPT/HCPCS: 80307; 82962; 83036; 83540; 83550; 83605; 83735; 84100; 84145; 87040; 87081; 87340; 87449; 87798; 87804; 87899; 93005; 93306; 93990; 96365; 96374; 99285; J0131; J0692; J0696; J0885; J2916; J3370; J7030; J7050; J7060

== ENCOUNTER 2017-07-12 21:37 | Inpatient (IN) | payer MEDICARE, OTHER ==
[~2017-07-12] VITALS: Ht 160 cm; Wt 63.6 kg
[~2017-07-12 21:37] MED LIST changes: -AMLO2.5T PO; -ATOR10TA84 PO; +ATOR20TA86 PO; -CITA20TA9 PO; -DSS100 PO; -FOLI1CAP2 PO; +FURO40 PO; -LEVE250T55 PO; +LEVO125 PO; -LISI-661 PO; -PHOSLOC PO; +SUCR1TAB PO
[2017-07-12] MEDS ORDERED: PHYTONADIONE 10 MG in SODIUM CHLORIDE 0.9% 50 ML IV ONE (22:00)
[2017-07-12 22:08] LABS: BASOPHILS % (AUTO) 0.5 % (0.0-2.0); EOSINOPHILS % (AUTO) 6.3 % (1.0-6.0); LYMPHOCYTES # (AUTO) 0.5 K/uL (1.0-4.8); LYMPHOCYTES % (AUTO) 14.6 % (22.0-44.0); MEAN CORPUSCULAR HEMOGLOBIN 31.2 pg (26.0-34.0); MEAN CORPUSCULAR HGB CONC 33.3 G/dL (31.0-37.0); MEAN CORPUSCULAR VOLUME 94 fL (80-100); MONOCYTES # (AUTO) 0.4 K/uL (0.1-1.0); MONOCYTES % (AUTO) 10.1 % (2.0-9.0); NEUTROPHILS # (AUTO) 2.5 K/uL (1.8-7.7); NEUTROPHILS % (AUTO) 68.5 % (40.0-70.0); RED BLOOD CELL COUNT(AUTO) 3.52 MIL/uL (4.50-5.90); RED CELL DISTRIBUTION WIDTH 18.3 % (11.5-14.5); WHITE BLOOD COUNT (AUTO) 3.6 K/uL (4.5-11.0)
[2017-07-12 22:27] LABS: INR 2.1 (0.9-1.1); PROTHROMBIN TIME 22.7 SEC (9.4-11.6)
[2017-07-12] MEDS ORDERED: GELATIN SPONGE,ABSORBABLE 100 MM TP ONE (22:30)
[2017-07-12 22:34] LABS: PLATELET COUNT (AUTO) 7 K/uL (150-450); RBC MORPHOLOGY COMMENT ABNORMAL RBC MORPH
[2017-07-12] MEDS ORDERED: SODIUM CHLORIDE 0.9% 1,000 ML IV ONE (22:57)
[2017-07-12] MEDS ORDERED: ONDANSETRON HCL 4 MG/2 ML VIAL IVP PRN (23:00)
[2017-07-12] MEDS ORDERED: MAGNESIUM HYDROXIDE SUSPENSION 30 ML UDCUP PO PRN (23:00)
[2017-07-12] MEDS ORDERED: BISACODYL 10 MG RECTAL RECTAL SUPPOSITORY PR PRN (23:00)
[2017-07-12] MEDS ORDERED: ZOLPIDEM TARTRATE 5 MG TABLET PO PRN (23:00)
[2017-07-12] MEDS ORDERED: HYDROCODONE/ACETAMINOPHEN 5-325 MG TABLET PO PRN (23:00)
[2017-07-12] MEDS ORDERED: ACETAMINOPHEN 325 MG TABLET PO PRN (23:00)
[2017-07-12] MEDS ORDERED: MORPHINE SULFATE 2 MG/ML SYRINGE IVP PRN (23:00)
[2017-07-12 23:57] VITALS: BP 139/74
[2017-07-13] VITALS (21 sets, daily range): BP systolic 99–154; BP diastolic 47–76
[2017-07-13] MEDS ORDERED: SODIUM CHLORIDE 0.9% 250 ML IV ONE (03:00)
[2017-07-13] MEDS: LEVOTHYROXINE SODIUM 125 MCG TABLET PO SCH (06:48)
[2017-07-13] MEDS ORDERED: PNEUMOCOCCAL VACCINE POLYVALENT 0.5 ML VIAL [PPSV23] IM ONE (08:00)
[2017-07-13 08:13] LABS: CALCIUM, TOTAL 8.7 mg/dL (8.8-10.5); CREATININE 3.92 mg/dL (0.60-1.30); POTASSIUM 4.5 mmol/L (3.5-5.1)
[2017-07-13 08:20] LABS: BASOPHILS % (AUTO) 1.1 % (0.0-2.0); EOSINOPHILS % (AUTO) 7.1 % (1.0-6.0); HEMATOCRIT 31.5 % (41-53); HEMOGLOBIN 10.6 g/dL (13.5-17.5); LYMPHOCYTES # (AUTO) 0.6 K/uL (1.0-4.8); LYMPHOCYTES % (AUTO) 21.1 % (22.0-44.0); MEAN CORPUSCULAR HEMOGLOBIN 31.5 pg (26.0-34.0); MEAN CORPUSCULAR HGB CONC 33.6 G/dL (31.0-37.0); MEAN CORPUSCULAR VOLUME 94 fL (80-100); MONOCYTES # (AUTO) 0.3 K/uL (0.1-1.0); MONOCYTES % (AUTO) 9.2 % (2.0-9.0); NEUTROPHILS # (AUTO) 1.8 K/uL (1.8-7.7); NEUTROPHILS % (AUTO) 61.5 % (40.0-70.0); RED BLOOD CELL COUNT(AUTO) 3.37 MIL/uL (4.50-5.90); RED CELL DISTRIBUTION WIDTH 18.4 % (11.5-14.5)
[2017-07-13 08:25] LABS: PLATELET COUNT (AUTO) 14 K/uL (150-450)
[2017-07-13] MEDS: DOCUSATE SODIUM 100 MG CAPSULE PO SCH ×2 (09:00→20:17)
[2017-07-13 09:10] LABS: RBC MORPHOLOGY COMMENT ABNORMAL RBC MORPH
[2017-07-13] MEDS: ATORVASTATIN CALCIUM 20 MG TABLET PO SCH (10:10)
[2017-07-13] MEDS: FUROSEMIDE 40 MG TABLET PO SCH (10:10)
[2017-07-13] MEDS: SUCRALFATE 1 GM TABLET PO SCH (10:10)
[2017-07-13] MEDS: PANTOPRAZOLE SODIUM 40 MG DR TABLET PO SCH (10:10)
[2017-07-13] MEDS: TAMSULOSIN HCL 0.4 MG CAPSULE PO SCH (10:10)
[2017-07-13 15:04] LABS: HEMATOCRIT 31.2 % (41-53); HEMOGLOBIN 10.3 g/dL (13.5-17.5)
[2017-07-13 23:48] LABS: HEMATOCRIT 29.3 % (41-53); HEMOGLOBIN 9.9 g/dL (13.5-17.5)
[2017-07-14 03:45] VITALS: BP 132/74
[2017-07-14] MEDS: LEVOTHYROXINE SODIUM 125 MCG TABLET PO SCH (05:52)
[2017-07-14 06:19] LABS: CALCIUM, TOTAL 8.7 mg/dL (8.8-10.5); CREATININE 6.22 mg/dL (0.60-1.30); MAGNESIUM 2.2 mg/dL (1.80-2.40); PHOSPHORUS 5.4 mg/dL (2.5-4.9); POTASSIUM 4.7 mmol/L (3.5-5.1)
[2017-07-14 06:28] LABS: BASOPHILS % (AUTO) 0.7 % (0.0-2.0); EOSINOPHILS % (AUTO) 7.8 % (1.0-6.0); HEMATOCRIT 32.2 % (41-53); HEMOGLOBIN 10.8 g/dL (13.5-17.5); LYMPHOCYTES # (AUTO) 0.9 K/uL (1.0-4.8); MEAN CORPUSCULAR HEMOGLOBIN 31.5 pg (26.0-34.0); MEAN CORPUSCULAR HGB CONC 33.4 G/dL (31.0-37.0); MEAN CORPUSCULAR VOLUME 94 fL (80-100); MONOCYTES # (AUTO) 0.3 K/uL (0.1-1.0); NEUTROPHILS # (AUTO) 2.2 K/uL (1.8-7.7); NEUTROPHILS % (AUTO) 59.5 % (40.0-70.0); PLATELET COUNT (AUTO) 47 K/uL (150-450); RED BLOOD CELL COUNT(AUTO) 3.42 MIL/uL (4.50-5.90); RED CELL DISTRIBUTION WIDTH 18.2 % (11.5-14.5); WHITE BLOOD COUNT (AUTO) 3.7 K/uL (4.5-11.0)
[2017-07-14 07:34] VITALS: BP 122/81
[2017-07-14] MEDS: ATORVASTATIN CALCIUM 20 MG TABLET PO SCH (08:13)
[2017-07-14] MEDS: TAMSULOSIN HCL 0.4 MG CAPSULE PO SCH (08:14)
[2017-07-14] MEDS: PANTOPRAZOLE SODIUM 40 MG DR TABLET PO SCH (08:14)
[2017-07-14] MEDS: SUCRALFATE 1 GM TABLET PO SCH (08:14)
[2017-07-14] MEDS: FUROSEMIDE 40 MG TABLET PO SCH (08:14)
[2017-07-14] MEDS: DOCUSATE SODIUM 100 MG CAPSULE PO SCH ×2 (08:14→20:03)
[2017-07-14 08:48] LABS: RBC MORPHOLOGY COMMENT ABNORMAL RBC MORPH
[2017-07-14 11:34] VITALS: BP 115/71
[2017-07-14 15:26] LABS: HEMATOCRIT 30.7 % (41-53); HEMOGLOBIN 10.2 g/dL (13.5-17.5)
[2017-07-14 16:32] VITALS: BP 114/70
[2017-07-14 19:47] VITALS: BP 128/70
[2017-07-14 23:47] VITALS: BP 117/79
[2017-07-15 04:52] VITALS: BP 124/72
[2017-07-15] MEDS: LEVOTHYROXINE SODIUM 125 MCG TABLET PO SCH (05:59)
[2017-07-15 06:09] LABS: BASOPHILS % (AUTO) 0.8 % (0.0-2.0); EOSINOPHILS % (AUTO) 5.8 % (1.0-6.0); HEMATOCRIT 30.3 % (41-53); HEMOGLOBIN 10.1 g/dL (13.5-17.5); LYMPHOCYTES # (AUTO) 0.8 K/uL (1.0-4.8); LYMPHOCYTES % (AUTO) 23.6 % (22.0-44.0); MEAN CORPUSCULAR HEMOGLOBIN 31.4 pg (26.0-34.0); MEAN CORPUSCULAR HGB CONC 33.3 G/dL (31.0-37.0); MEAN CORPUSCULAR VOLUME 94 fL (80-100); MONOCYTES # (AUTO) 0.3 K/uL (0.1-1.0); MONOCYTES % (AUTO) 8.5 % (2.0-9.0); NEUTROPHILS # (AUTO) 2.2 K/uL (1.8-7.7); NEUTROPHILS % (AUTO) 61.3 % (40.0-70.0); PLATELET COUNT (AUTO) 50 K/uL (150-450); RED BLOOD CELL COUNT(AUTO) 3.21 MIL/uL (4.50-5.90); RED CELL DISTRIBUTION WIDTH 17.8 % (11.5-14.5); WHITE BLOOD COUNT (AUTO) 3.6 K/uL (4.5-11.0)
[2017-07-15 06:14] LABS: INR 2.1 (0.9-1.1); PROTHROMBIN TIME 22.1 SEC (9.4-11.6)
[2017-07-15 06:20] LABS: CALCIUM, TOTAL 8.7 mg/dL (8.8-10.5); CREATININE 7.81 mg/dL (0.60-1.30); POTASSIUM 5.2 mmol/L (3.5-5.1)
[2017-07-15 06:59] LABS: RBC MORPHOLOGY COMMENT ABNORMAL RBC MORPH
[2017-07-15 07:29] VITALS: BP 117/68
[2017-07-15] MEDS: PANTOPRAZOLE SODIUM 40 MG DR TABLET PO SCH (09:45)
[2017-07-15] MEDS: SUCRALFATE 1 GM TABLET PO SCH (09:45)
[2017-07-15] MEDS: TAMSULOSIN HCL 0.4 MG CAPSULE PO SCH (09:45)
[2017-07-15] MEDS: FUROSEMIDE 40 MG TABLET PO SCH (09:45)
[2017-07-15] MEDS: ATORVASTATIN CALCIUM 20 MG TABLET PO SCH (09:45)
[2017-07-15] MEDS: DOCUSATE SODIUM 100 MG CAPSULE PO SCH ×2 (09:45→20:33)
[2017-07-15 10:39] LABS: ALBUMIN 3.5 g/dL (3.4-5.0); BILIRUBIN,TOTAL 0.7 mg/dL (0.1-1.0); TOTAL PROTEIN, SERUM 6.9 g/dL (6.4-8.2)
[2017-07-15 11:04] VITALS: BP 121/73
[2017-07-15] MEDS ORDERED: ALBUMIN HUMAN 25%-12.5GM/50ML IV BOTTLE IV PRN (14:00)
[2017-07-15] MEDS ORDERED: MANNITOL 25%-12.5 GM/50 ML VIAL IVP PRN (14:00)
[2017-07-15 15:59] VITALS: BP 129/80
[2017-07-15 19:33] VITALS: BP 127/63
[2017-07-15] MEDS: PHYTONADIONE 10 MG/1 ML AMP IM SCH (20:39)
[2017-07-15 21:49] LABS: FIBRINOGEN 337 mg/dL (200-400)
[2017-07-15 23:49] VITALS: BP 124/58
[2017-07-16] VITALS (18 sets, daily range): BP systolic 114–163; BP diastolic 64–80
[2017-07-16 06:16] LABS: BASOPHILS % (AUTO) 1.1 % (0.0-2.0); EOSINOPHILS % (AUTO) 5.1 % (1.0-6.0); HEMATOCRIT 30.5 % (41-53); HEMOGLOBIN 10.2 g/dL (13.5-17.5); LYMPHOCYTES # (AUTO) 0.7 K/uL (1.0-4.8); MEAN CORPUSCULAR HEMOGLOBIN 31.6 pg (26.0-34.0); MEAN CORPUSCULAR HGB CONC 33.5 G/dL (31.0-37.0); MEAN CORPUSCULAR VOLUME 94 fL (80-100); MONOCYTES # (AUTO) 0.3 K/uL (0.1-1.0); MONOCYTES % (AUTO) 9.2 % (2.0-9.0); NEUTROPHILS # (AUTO) 2.2 K/uL (1.8-7.7); NEUTROPHILS % (AUTO) 63.6 % (40.0-70.0); PLATELET COUNT (AUTO) 26 K/uL (150-450); RED BLOOD CELL COUNT(AUTO) 3.23 MIL/uL (4.50-5.90); RED CELL DISTRIBUTION WIDTH 17.2 % (11.5-14.5); WHITE BLOOD COUNT (AUTO) 3.4 K/uL (4.5-11.0)
[2017-07-16] MEDS: LEVOTHYROXINE SODIUM 125 MCG TABLET PO SCH (06:42)
[2017-07-16 06:57] LABS: INR 2.2 (0.9-1.1); PROTHROMBIN TIME 23.4 SEC (9.4-11.6)
[2017-07-16] MEDS: DOCUSATE SODIUM 100 MG CAPSULE PO SCH ×2 (09:00→20:42)
[2017-07-16] MEDS ORDERED: SODIUM CHLORIDE 0.9% 1,000 ML IV ONE (09:16)
[2017-07-16 12:17] LABS: HEPATITIS Bs ANTIGEN SCREEN P Negative (Negative); HEPATITIS C AB SCREEN 0.1 s/co ratio (0.0-0.9)
[2017-07-16] MEDS ORDERED: FentaNYL CITRATE-PF 100 MCG/2 ML VIAL ONE (14:48)
[2017-07-16] MEDS ORDERED: CeFAZolin 1 GM/DEXTROSE 0 ML IV ONE (15:04)
[2017-07-16 15:24] LABS: BASOPHILS % (AUTO) 0.6 % (0.0-2.0); EOSINOPHILS % (AUTO) 3.1 % (1.0-6.0); HEMATOCRIT 28.2 % (41-53); HEMOGLOBIN 9.5 g/dL (13.5-17.5); LYMPHOCYTES # (AUTO) 0.6 K/uL (1.0-4.8); LYMPHOCYTES % (AUTO) 20.7 % (22.0-44.0); MEAN CORPUSCULAR HEMOGLOBIN 31.1 pg (26.0-34.0); MEAN CORPUSCULAR HGB CONC 33.6 G/dL (31.0-37.0); MEAN CORPUSCULAR VOLUME 93 fL (80-100); MONOCYTES # (AUTO) 0.3 K/uL (0.1-1.0); NEUTROPHILS # (AUTO) 1.9 K/uL (1.8-7.7); NEUTROPHILS % (AUTO) 66.6 % (40.0-70.0); PLATELET COUNT (AUTO) 70 K/uL (150-450); RED BLOOD CELL COUNT(AUTO) 3.04 MIL/uL (4.50-5.90); RED CELL DISTRIBUTION WIDTH 17.2 % (11.5-14.5); WHITE BLOOD COUNT (AUTO) 2.8 K/uL (4.5-11.0)
[2017-07-16 15:35] LABS: INR 1.8 (0.9-1.1); PROTHROMBIN TIME 19.3 SEC (9.4-11.6)
[2017-07-16] MEDS: SUCRALFATE 1 GM TABLET PO SCH (16:33)
[2017-07-16] MEDS: PANTOPRAZOLE SODIUM 40 MG DR TABLET PO SCH (16:34)
[2017-07-16] MEDS: TAMSULOSIN HCL 0.4 MG CAPSULE PO SCH (16:34)
[2017-07-16] MEDS: ATORVASTATIN CALCIUM 20 MG TABLET PO SCH (16:34)
[2017-07-16] MEDS: FUROSEMIDE 40 MG TABLET PO SCH (16:35)
[2017-07-16 16:59] LABS: RBC MORPHOLOGY COMMENT ABNORMAL RBC MORPH
[2017-07-16] MEDS: PHYTONADIONE 10 MG/1 ML AMP IM SCH (20:45)
[2017-07-17 00:04] VITALS: BP 121/67
[2017-07-17 04:42] VITALS: BP 112/62
[2017-07-17] MEDS: LEVOTHYROXINE SODIUM 125 MCG TABLET PO SCH (05:40)
[2017-07-17 06:15] LABS: BASOPHILS % (AUTO) 0.7 % (0.0-2.0); EOSINOPHILS % (AUTO) 3.4 % (1.0-6.0); HEMATOCRIT 29.1 % (41-53); HEMOGLOBIN 9.7 g/dL (13.5-17.5); LYMPHOCYTES # (AUTO) 0.7 K/uL (1.0-4.8); LYMPHOCYTES % (AUTO) 19.6 % (22.0-44.0); MEAN CORPUSCULAR HGB CONC 33.5 G/dL (31.0-37.0); MEAN CORPUSCULAR VOLUME 93 fL (80-100); MONOCYTES # (AUTO) 0.3 K/uL (0.1-1.0); MONOCYTES % (AUTO) 9.1 % (2.0-9.0); NEUTROPHILS # (AUTO) 2.4 K/uL (1.8-7.7); NEUTROPHILS % (AUTO) 67.2 % (40.0-70.0); PLATELET COUNT (AUTO) 77 K/uL (150-450); RED BLOOD CELL COUNT(AUTO) 3.15 MIL/uL (4.50-5.90); RED CELL DISTRIBUTION WIDTH 17.3 % (11.5-14.5); WHITE BLOOD COUNT (AUTO) 3.6 K/uL (4.5-11.0)
[2017-07-17 06:20] LABS: HEMATOCRIT 28.8 % (41-53); HEMOGLOBIN 9.7 g/dL (13.5-17.5); MEAN CORPUSCULAR HGB CONC 33.6 G/dL (31.0-37.0); MEAN CORPUSCULAR VOLUME 92 fL (80-100); PLATELET COUNT (AUTO) 74 K/uL (150-450); RED BLOOD CELL COUNT(AUTO) 3.12 MIL/uL (4.50-5.90); RED CELL DISTRIBUTION WIDTH 17.5 % (11.5-14.5); WHITE BLOOD COUNT (AUTO) 3.4 K/uL (4.5-11.0)
[2017-07-17 06:26] LABS: INR 1.8 (0.9-1.1); PROTHROMBIN TIME 19.4 SEC (9.4-11.6)
[2017-07-17 06:33] LABS: CALCIUM, TOTAL 8.9 mg/dL (8.8-10.5); CREATININE 6.82 mg/dL (0.60-1.30); POTASSIUM 5.5 mmol/L (3.5-5.1)
[2017-07-17] MEDS ORDERED: FentaNYL CITRATE-PF 100 MCG/2 ML VIAL ONE (07:15)
[2017-07-17] MEDS ORDERED: CeFAZolin 1 GM/DEXTROSE 0 ML IV ONE (07:15)
[2017-07-17] MEDS ORDERED: LIDOCAINE HCL/PF 1% 30 ML VIAL ONE (07:15)
[2017-07-17] MEDS ORDERED: SODIUM BICARBONATE 50 MEQ/50 ML VIAL ONE (07:15)
[2017-07-17] MEDS ORDERED: MIDAZOLAM HCL 2 MG/2 ML VIAL ONE (07:15)
[2017-07-17 07:19] VITALS: BP 122/74
[2017-07-17] MEDS ORDERED: HEPARIN SODIUM 1000 UNITS/NS 500 ML ONE (07:36)
[2017-07-17] MEDS ORDERED: IOHEXOL 300 MG/ML 50 ML VIAL ONE ×2 (07:37→08:32)
[2017-07-17 07:48] LABS: RBC MORPHOLOGY COMMENT ABNORMAL RBC MORPH
[2017-07-17 07:53] LABS: BAND NEUTROPHILS % (MANUAL) 2 % (1-5); EOSINOPHILS % (MANUAL) 2 % (1-6); LYMPHOCYTES % (MANUAL) 20 % (22-44); RBC MORPHOLOGY COMMENT ABNORMAL R; TOTAL CELLS COUNTED 100
[2017-07-17] MEDS ORDERED: MIDAZOLAM HCL 2 MG/2 ML VIAL IVP ONE (08:40)
[2017-07-17] MEDS ORDERED: FentaNYL CITRATE-PF 100 MCG/2 ML VIAL IVP ONE (08:40)
[2017-07-17] MEDS ORDERED: IOHEXOL 300 MG/ML 150 ML VIAL ONE (08:48)
[2017-07-17 09:01] LABS: MAGNESIUM 1.9 mg/dL (1.80-2.40); PHOSPHORUS 5.6 mg/dL (2.5-4.9)
[2017-07-17 11:24] VITALS: BP 125/70
[2017-07-17] MEDS ORDERED: SODIUM CHLORIDE 0.9% 2,000 ML IV ONE (11:52)
[2017-07-17] MEDS: TAMSULOSIN HCL 0.4 MG CAPSULE PO SCH (12:04)
[2017-07-17] MEDS: SUCRALFATE 1 GM TABLET PO SCH (12:04)
[2017-07-17] MEDS: ATORVASTATIN CALCIUM 20 MG TABLET PO SCH (12:04)
[2017-07-17] MEDS: DOCUSATE SODIUM 100 MG CAPSULE PO SCH ×2 (12:04→20:51)
[2017-07-17] MEDS: FUROSEMIDE 40 MG TABLET PO SCH (12:04)
[2017-07-17] MEDS: PANTOPRAZOLE SODIUM 40 MG DR TABLET PO SCH (12:04)
[2017-07-17 16:20] VITALS: BP 121/74
[2017-07-17 19:51] VITALS: BP 123/73
[2017-07-17] MEDS: PHYTONADIONE 10 MG/1 ML AMP IM SCH (20:52)
[2017-07-18] VITALS (7 sets, daily range): BP systolic 123–158; BP diastolic 70–93
[2017-07-18] MEDS: LEVOTHYROXINE SODIUM 125 MCG TABLET PO SCH (05:57)
[2017-07-18 06:23] LABS: BASOPHILS % (AUTO) 0.5 % (0.0-2.0); EOSINOPHILS % (AUTO) 0.8 % (1.0-6.0); HEMATOCRIT 29.7 % (41-53); HEMOGLOBIN 9.9 g/dL (13.5-17.5); LYMPHOCYTES # (AUTO) 0.4 K/uL (1.0-4.8); LYMPHOCYTES % (AUTO) 8.2 % (22.0-44.0); MEAN CORPUSCULAR HEMOGLOBIN 31.1 pg (26.0-34.0); MEAN CORPUSCULAR HGB CONC 33.3 G/dL (31.0-37.0); MEAN CORPUSCULAR VOLUME 94 fL (80-100); MONOCYTES # (AUTO) 0.2 K/uL (0.1-1.0); MONOCYTES % (AUTO) 5.2 % (2.0-9.0); NEUTROPHILS # (AUTO) 4.1 K/uL (1.8-7.7); RED BLOOD CELL COUNT(AUTO) 3.17 MIL/uL (4.50-5.90); RED CELL DISTRIBUTION WIDTH 16.9 % (11.5-14.5); WHITE BLOOD COUNT (AUTO) 4.8 K/uL (4.5-11.0)
[2017-07-18 06:31] LABS: NEUTROPHILS % (AUTO) 85.3 % (40.0-70.0)
[2017-07-18 06:36] LABS: INR 2.2 (0.9-1.1); PROTHROMBIN TIME 23.6 SEC (9.4-11.6)
[2017-07-18 07:45] LABS: PLATELET COUNT (AUTO) 51 K/uL (150-450); RBC MORPHOLOGY COMMENT ABNORMAL RBC MORPH
[2017-07-18] MEDS: PANTOPRAZOLE SODIUM 40 MG DR TABLET PO SCH (07:57)
[2017-07-18] MEDS: ATORVASTATIN CALCIUM 20 MG TABLET PO SCH (07:57)
[2017-07-18] MEDS: TAMSULOSIN HCL 0.4 MG CAPSULE PO SCH (07:57)
[2017-07-18] MEDS: FUROSEMIDE 40 MG TABLET PO SCH (07:57)
[2017-07-18] MEDS: SUCRALFATE 1 GM TABLET PO SCH (07:57)
[2017-07-18] MEDS: DOCUSATE SODIUM 100 MG CAPSULE PO SCH ×2 (07:57→21:21)
[2017-07-18 15:21] LABS: ANA,IFA (TITER & PATTERN) Negative
[2017-07-18] MEDS: PHYTONADIONE 10 MG/1 ML AMP IM SCH (21:21)
[2017-07-19 04:10] VITALS: BP 146/80
[2017-07-19] MEDS: LEVOTHYROXINE SODIUM 125 MCG TABLET PO SCH (06:17)
[2017-07-19 07:26] VITALS: BP 130/77
[2017-07-19] MEDS: DOCUSATE SODIUM 100 MG CAPSULE PO SCH ×2 (09:00→20:16)
[2017-07-19 11:42] VITALS: BP 146/83
[2017-07-19] MEDS ORDERED: SODIUM CHLORIDE 0.9% 1,000 ML IV ONE (12:44)
[2017-07-19 14:41] LABS: DRVVT CONFIRMATION-LUPUS >2.8 ratio (0.8-1.2); DRVVT CORRECTED MIX-LUPUS 122.1 sec (0.0-47.0); DRVVT-LUPUS ANTICOAGULANT >180.0 sec (0.0-47.0); LUP DRVVT CONFIRM REFLEX? YES; LUP DRVVT CORR. MIX REFLEX? YES; LUPUS INR 2.2 (0.9-1.1); LUPUS SENSITIVE PTT >160.0 sec (0.0-51.9); PT-LUPUS ANTICOAGULANT 22.6 sec (9.6-11.5)
[2017-07-19 15:25] VITALS: BP 136/79
[2017-07-19] MEDS: FUROSEMIDE 40 MG TABLET PO SCH (16:39)
[2017-07-19] MEDS: PANTOPRAZOLE SODIUM 40 MG DR TABLET PO SCH (16:39)
[2017-07-19] MEDS: ATORVASTATIN CALCIUM 20 MG TABLET PO SCH (16:40)
[2017-07-19] MEDS: TAMSULOSIN HCL 0.4 MG CAPSULE PO SCH (16:40)
[2017-07-19] MEDS: SUCRALFATE 1 GM TABLET PO SCH (16:40)
[2017-07-19 18:37] LABS: ANTI NUCLEAR AB,DIRECT(SCREEN) Positive (Negative)
[2017-07-19 19:25] VITALS: BP 144/77
[2017-07-19] MEDS: PHYTONADIONE 10 MG/1 ML AMP IM SCH (20:16)
[2017-07-19 23:53] VITALS: BP 125/72
[2017-07-20 05:08] LABS: LUP PTT-CORRECTED MIX REFLEX? YES; LUPUS PTTc-CORRECTED/MIX >160.0 sec (0.0-48.9)
[2017-07-20 06:02] VITALS: BP 127/59
[2017-07-20] MEDS: LEVOTHYROXINE SODIUM 125 MCG TABLET PO SCH (06:15)
[2017-07-20 06:50] LABS: HEXAGONAL PHOS NEUTRALIZ REFLX >>83.3 sec (0-11); LUP HEXAGONL PHOS REFLEX? YES
[2017-07-20 06:53] LABS: CALCIUM, TOTAL 9.2 mg/dL (8.8-10.5); CREATININE 5.71 mg/dL (0.60-1.30); POTASSIUM 5.2 mmol/L (3.5-5.1)
[2017-07-20 07:37] VITALS: BP 136/80
[2017-07-20] MEDS: DOCUSATE SODIUM 100 MG CAPSULE PO SCH (08:37)
[2017-07-20] MEDS: TAMSULOSIN HCL 0.4 MG CAPSULE PO SCH (08:37)
[2017-07-20] MEDS: FUROSEMIDE 40 MG TABLET PO SCH (08:37)
[2017-07-20] MEDS: PANTOPRAZOLE SODIUM 40 MG DR TABLET PO SCH (08:38)
[2017-07-20] MEDS: ATORVASTATIN CALCIUM 20 MG TABLET PO SCH (08:38)
[2017-07-20] MEDS: SUCRALFATE 1 GM TABLET PO SCH (08:38)
[2017-07-20 11:15] VITALS: BP 134/81
[2017-07-20] MEDS ORDERED: VITAMIN B COMP/VIT C/FOLIC ACID CAPSULE PO SCH (11:30)
[2017-07-20] MEDS ORDERED: EPOETIN ALFA 10,000 UNITS/ML VIAL SQ SCH (12:00)
[2017-07-20 12:08] LABS: ANTI JO-1 (t-RNA Synthethase) <0.2 AI (0.0-0.9); ANTI-DNA DOUBLE STRANDED ABS 2 IU/mL (0-9); RIBONUCLEIC PROTEIN ENA AB <0.2 AI (0.0-0.9); SMITH AB - IGG (ENA) 0.2 AI (0.0-0.9); SSA/Ro SJOGRENS ANTIBODY <0.2 AI (0.0-0.9); SSB/La SJOGREN'S ANTIBODY <0.2 AI (0.0-0.9)
[2017-07-20 15:54] VITALS: BP 136/78
[2017-07-20] MEDS ORDERED: VIT1TAB.4 PO (16:48)
[2017-07-22 12:17] LABS: ANTI-PROTEINASE 3 (PR3) <3.5 U/mL (0.0-3.5)
[2017-07-23 12:09] LABS: ATYPICAL P-ANCA AB <1:20 titer (Neg:<1:20); CYTOPLASMIC (C-ANCA) AB, IGG <1:20 titer (Neg:<1:20); PERINUCLEAR (P-ANCA) IGG AB <1:20 titer (Neg:<1:20)
== END 2017-07-20 17:45 | disposition home or self-care (01) | DRG 252 ==
LOC: EMS 21:39 → 5N 23:10 → 5S 07-13 16:05
PROVIDERS: ADMIT Internal Medicine; ATTEND Internal Medicine
PROC: 30233K1 Transfusion of Nonautologous Frozen Plasma into Peripheral Vein, Percutaneous Approach (ICD-10-PCS; 2017-07-13)
PROC: 30233R1 Transfusion of Nonautologous Platelets into Peripheral Vein, Percutaneous Approach (ICD-10-PCS; 2017-07-13)
PROC: 30233P1 Transfusion of Nonautologous Frozen Red Cells into Peripheral Vein, Percutaneous Approach (ICD-10-PCS; 2017-07-13)
PROC: 5A1D70Z Performance of Urinary Filtration, Intermittent, Less than 6 Hours Per Day (ICD-10-PCS; 2017-07-15)
PROC: 05763ZZ Dilation of Left Subclavian Vein, Percutaneous Approach (ICD-10-PCS; principal; 2017-07-17)
PROC: B51W1ZZ Fluoroscopy of Dialysis Shunt/Fistula using Low Osmolar Contrast (ICD-10-PCS; 2017-07-17)
PROC: 5A1D70Z Performance of Urinary Filtration, Intermittent, Less than 6 Hours Per Day (ICD-10-PCS; 2017-07-17)
PROC: 5A1D70Z Performance of Urinary Filtration, Intermittent, Less than 6 Hours Per Day (ICD-10-PCS; 2017-07-19)
DX: T82.838A Hemorrhage due to vascular prosthetic devices, implants and grafts, initial encounter (principal); N18.6 End stage renal disease; I13.2 Hypertensive heart and chronic kidney disease with heart failure and with stage 5 chronic kidney disease, or end stage renal disease; D61.818 Other pancytopenia; D68.61 Antiphospholipid syndrome; E11.22 Type 2 diabetes mellitus with diabetic chronic kidney disease; F20.9 Schizophrenia, unspecified; I08.1 Rheumatic disorders of both mitral and tricuspid valves; I42.9 Cardiomyopathy, unspecified; T82.858A Stenosis of other vascular prosthetic devices, implants and grafts, initial encounter; I27.20 Pulmonary hypertension, unspecified; N40.0 Benign prostatic hyperplasia without lower urinary tract symptoms; I25.10 Atherosclerotic heart disease of native coronary artery without angina pectoris; G40.909 Epilepsy, unspecified, not intractable, without status epilepticus; E03.9 Hypothyroidism, unspecified; I50.9 Heart failure, unspecified; E78.5 Hyperlipidemia, unspecified; Z99.2 Dependence on renal dialysis; Z79.899 Other long term (current) drug therapy; Z79.01 Long term (current) use of anticoagulants; Z87.891 Personal history of nicotine dependence; Y93.89 Activity, other specified; Y84.1 Kidney dialysis as the cause of abnormal reaction of the patient, or of later complication, without mention of misadventure at the time of the procedure; Y92.89 Other specified places as the place of occurrence of the external cause
CPT/HCPCS: 71250; 75710; 76700; 76937; 80074; 82607; 82728; 82746; 83516; 83540; 83550; 83615; 83735; 84100; 85007; 85014; 85018; 85045; 85362; 85379; 85384; 85613; 85732; 86038; 86147; 86200; 86225; 86235; 86256; 86430; 86850; 86900; 86901; 86927; 87040; 87081; 90471; 90935; 96365; 99291; J0690; J0885; J1644; J2250; J3010; J3430; J3490; J7030; J7050; P9017; P9035; Q9967

== ENCOUNTER 2017-09-13 07:07 | Emergency (ER) | payer MEDICARE, OTHER ==
[~2017-09-13] VITALS: Ht 167.6 cm; Wt 78.2 kg
[~2017-09-13 07:07] MED LIST changes: +VIT1TAB.4 PO; -WARF2 PO
[2017-09-13] MEDS ORDERED: METF500T4 PO (07:28)
[2017-09-13 09:03] VITALS: BP 138/83
== END 2017-09-13 09:04 | disposition home or self-care (01) ==
LOC: EMS 07:09
DX: T82.838A Hemorrhage due to vascular prosthetic devices, implants and grafts, initial encounter (principal); E11.22 Type 2 diabetes mellitus with diabetic chronic kidney disease; N18.6 End stage renal disease; I50.9 Heart failure, unspecified; I25.10 Atherosclerotic heart disease of native coronary artery without angina pectoris; Z99.2 Dependence on renal dialysis
CPT/HCPCS: 82962; 99283

== ENCOUNTER 2018-02-12 23:42 | Emergency (ER) | payer MEDICARE, MEDICAID ==
[~2018-02-12] VITALS: Ht 162.6 cm; Wt 74.5 kg
[~2018-02-12 23:42] MED LIST changes: +METF500T6 PO
[2018-02-13 01:10] LABS: BASOPHILS % (AUTO) 0.5 % (0.0-2.0); EOSINOPHILS % (AUTO) 1.4 % (1.0-6.0); HEMATOCRIT 22.4 % (41-53); HEMOGLOBIN 7.8 g/dL (13.5-17.5); LYMPHOCYTES # (AUTO) 0.4 K/uL (1.0-4.8); LYMPHOCYTES % (AUTO) 5.6 % (22.0-44.0); MEAN CORPUSCULAR HEMOGLOBIN 30.8 pg (26.0-34.0); MEAN CORPUSCULAR HGB CONC 34.8 G/dL (31.0-37.0); MEAN CORPUSCULAR VOLUME 89 fL (80-100); MONOCYTES # (AUTO) 0.8 K/uL (0.1-1.0); MONOCYTES % (AUTO) 10.6 % (2.0-9.0); NEUTROPHILS # (AUTO) 5.9 K/uL (1.8-7.7); NEUTROPHILS % (AUTO) 81.9 % (40.0-70.0); RED BLOOD CELL COUNT(AUTO) 2.53 MIL/uL (4.50-5.90); RED CELL DISTRIBUTION WIDTH 15.4 % (11.5-14.5)
[2018-02-13 01:17] LABS: ALANINE AMINOTRANSFERASE 53 U/L (12-78); ALBUMIN 2.7 g/dL (3.4-5.0); ALKALINE PHOSPHATASE 189 U/L (46-116); ANION GAP 5 mmol/L (8-16); ASPARTATE AMINOTRANSFERASE 50 U/L (15-37); BILIRUBIN,TOTAL 0.8 mg/dL (0.1-1.0); CALCIUM, TOTAL 8.5 mg/dL (8.8-10.5); CARBON DIOXIDE 34 mmol/L (22-29); CHLORIDE 100 mmol/L (98-107); CREATININE 3.48 mg/dL (0.60-1.30); GLOMERULAR FILTR. RATE CALC 19 mL/min (>60); GLUCOSE,RANDOM 96 mg/dL (70-110); SODIUM SERUM 139 mmol/L (136-145); TOTAL PROTEIN, SERUM 7.3 g/dL (6.4-8.2); UREA NITROGEN, BLOOD 29 mg/dL (7-18)
[2018-02-13 01:19] LABS: POTASSIUM 2.8 mmol/L (3.5-5.1)
[2018-02-13 01:30] LABS: PLATELET COUNT (AUTO) 80 K/uL (150-450)
[2018-02-13 01:32] LABS: GLUCOSE,POINT OF CARE 113 MG/DL (70-110)
[2018-02-13 02:39] LABS: AMPHET/METH SCREEN,URINE NEGATIVE (NEGATIVE); BARBITURATE SCREEN, URINE NEGATIVE (NEGATIVE); BENZODIAZEPINES SCREEN,URINE NEGATIVE (NEGATIVE); CANNABINOID SCREEN,URINE NEGATIVE (NEGATIVE); COCAINE SCREEN,URINE NEGATIVE (NEGATIVE); METHADONE SCREEN, URINE NEGATIVE (NEGATIVE); OPIATE SCREEN,URINE NEGATIVE (NEGATIVE); PHENCYCLIDINE SCREEN,URINE NEGATIVE (NEGATIVE)
[2018-02-13 05:23] VITALS: BP 145/77
== END 2018-02-13 05:39 | disposition home or self-care (01) ==
LOC: EMS 23:44
DX: N17.9 Acute kidney failure, unspecified (principal); E11.9 Type 2 diabetes mellitus without complications; E78.00 Pure hypercholesterolemia, unspecified; F20.9 Schizophrenia, unspecified; I25.10 Atherosclerotic heart disease of native coronary artery without angina pectoris; I50.9 Heart failure, unspecified; Z99.2 Dependence on renal dialysis; Z79.899 Other long term (current) drug therapy
CPT/HCPCS: 36415; 80053; 80307; 82962; 85025; 99285; G0480